=== PATIENT | female | born 1995 | race Caucasian/White ===

== ENCOUNTER 2019-06-25 07:13 | Day surgery (SDC) | payer OTHER ==
--- NOTE | 2019-06-24 12:05 | HP ---
CHIEF COMPLAINT: Initiation of ECT PCP: none Primary Psychiatrist: Dr. Tavon Queen ([facility]) HISTORY OF PRESENT ILLNESS: 24 year old F with longstanding MDD which has become unstable over the last year. One suicide attempt early 2018, requiring medication adjustment. Recent Events: last inpt psych hospitalization December 2018 at [facility]. Also had inpatient admission at [facility] for SI. Over the last two months, Monica has begun self injurious behavior, by cutting her arms. 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 She continues to have SI, but does not have a clear plan, negative HI. 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 LMP: Mirena IUD, irreg menses Allergies: No Known Drug Allergies Allergy (Verified 06/25/19) HOME MEDICATIONS: Home Medications Medication Instructions Recorded Aripiprazole [Abilify] 20 mg PO DAILY 06/20/19 Bupropion HCl [Wellbutrin Xl] 300 mg PO DAILY 06/20/19 Fluoxetine HCl [Prozac] 40 mg PO DAILY 06/20/19 [place] Carbonate [Eskalith -] 600 mg PO DAILY 06/20/19 Quetiapine Fumarate [Seroquel -] 25 mg PO HS 06/20/19 clonazePAM [Klonopin -] 0.5 mg PO BID 06/20/19 REVIEW OF SYSTEMS CONSTITUTIONAL: Absent: fever, chills, diaphoresis, generalized weakness, malaise, loss of appetite, weight change HEENT: Absent: rhinorrhea, nasal congestion, throat pain, throat swelling, difficulty swallowing, mouth swelling, ear pain, eye pain, visual changes CARDIOVASCULAR: Absent: chest pain, syncope, palpitations, irregular heart rate, lightheadedness , peripheral edema RESPIRATORY: Absent: cough, shortness of breath, dyspnea with exertion, orthopnea, wheezing, stridor, hemoptysis GASTROINTESTINAL: Absent: abdominal pain, abdominal distension, nausea, vomiting, diarrhea, constipation, melena, hematochezia GENITOURINARY: Absent: dysuria, frequency, urgency, hesitancy, hematuria, flank pain, genital pain MUSCULOSKELETAL: Absent: myalgia, arthralgia, joint swelling, back pain, neck pain SKIN: Absent: rash, itching, pallor HEMATOLOGIC/IMMUNOLOGIC: Absent: easy bleeding, easy bruising, lymphadenopathy, frequent infections ENDOCRINE: Absent: unexplained weight gain, unexplained weight loss, heat intolerance, cold intolerance NEUROLOGIC: Absent: headache, focal weakness or paresthesias, dizziness, unsteady gait, seizure, mental status changes, bladder or bowel incontinence PSYCH: + SI, + sadness DIAGNOSTICS: LABS: urine preg negative, CMP/CBC WNL EKG: NSR 76bpm, no acute pathology. Vitals: T 98.5, BP 111/71, HR 78, RR 18. O2 sat 100% PHYSICAL EXAMINATION GENERAL: Awake, alert, and fully oriented, in no acute distress. HEAD: Normal with no signs of trauma. EYES: Pupils equal, round and reactive to light, sclera anicteric, conjunctiva clear. LUNGS: Breath sounds equal, clear to auscultation bilaterally. No wheezes, and no crackles. No accessory muscle use. HEART: Regular rate and rhythm, normal S1 and S2 ABDOMEN: Soft, nontender, not distended SKIN: + multiple laceration in various stages of healing MUSCULOSKELETAL: Normal range of motion at all joints. No bony deformities or tenderness. No CVA tenderness. UPPER EXTREMITIES: 2+ pulses, warm, well-perfused. No cyanosis. No clubbing. No peripheral edema. LOWER EXTREMITIES: 2+ pulses, warm, well-perfused. No calf tenderness. No peripheral edema. NEUROLOGICAL: Cranial nerves II-XII intact. Normal speech. PSYCH: flat/sad affect, +SI (no clear plan) ASSESSMENT/PLAN: 24 year old F with longstanding MDD, SI x 1, now with SIB recommended by psychiatrist to begin ECT. Pt deemed medically stable to start ECT. Cardiac --no cardiac history --Revised Cardiac Risk Index for Pre-Operative Risk: 0 points, 0.4% risk of major cardiac event Pulmonary --no pulmonary history Neurological --no neurological or neurosurgical history; no history of trauma Anesthesia --no reported problems with anesthesia ECT is a low risk procedure. The relative benefits of the planned procedure outweigh the relative risks for this patient at this time. Problem List - Problem (1) MDD (major depressive disorder) Code(s): F32.9 - MAJOR DEPRESSIVE DISORDER, SINGLE EPISODE, UNSPECIFIED Visit type - Emergency Visit Emergency Visit: No - New Patient This patient is new to me today: Yes Date on this admission: 06/25/19 - Critical Care Critical Care patient: No
[2019-06-25 08:05] VITALS: BMI 21.2
[2019-06-25 08:19] LABS: ALBUMIN 4.3 g/dl (3.4-5.0); BILIRUBIN,TOTAL 0.5 mg/dl (0.2-1); CALCIUM 9.3 mg/dl (8.5-10); CREATININE 0.7 mg/dl (0.55-1.3); POTASSIUM 4.3 mmol/L (3.5-5.1); TOT PROT 6.8 g/dl (6.4-8.2)
[2019-06-25 08:34] LABS: BASO % 0.6 % (0-2.0); EOS % 1.4 % (0-4.5); HEMATOCRIT 39.1 % (32.4-45.2); LYMPH % 18.1 % (8-40); MCH 31.2 pg (25.7-33.7); MCHC 33.3 g/dl (32.0-36.0); MEAN CELL VOLUME 93.5 fl (80-96); MEAN PLT VOLUME 8.4 fl (7.5-11.1); MONO % 9.7 % (3.8-10.2); NEUT % 70.2 % (42.8-82.8); PLATELET COUNT 215 K/MM3 (134-434); RBC 4.18 M/mm3 (3.60-5.2); RDW 11.8 % (11.6-15.6)
[2019-06-25] MEDS ORDERED: KETAMINE HCL 500 MG/10 ML VIAL ONE (10:02)
--- NOTE | 2019-06-25 11:07 | EKG ---
Test Reason : Blood Pressure : / mmHG Vent. Rate : 076 BPM Atrial Rate : 076 BPM P-R Int : 152 ms QRS Dur : 108 ms QT Int : 390 ms P-R-T Axes : 064 031 033 degrees QTc Int : 438 ms NORMAL SINUS RHYTHM NORMAL ECG NO PREVIOUS ECGS AVAILABLE Confirmed by Oliverio Martinez MD ([id number]) on 06/25/2019 11:06:37 AM Referred By: Paul Mi Confirmed By:Oliverio Martinez MD
[2019-06-25] MEDS ORDERED: ACETAMINOPHEN 325 MG TABLET (FP) ONE (11:12)
[2019-06-25 11:17] VITALS: TEMP 97.8
[2019-06-25 11:48] VITALS: BP 115/79; PULSE 74
== END 2019-06-25 11:50 | disposition home or self-care (01) ==
LOC: FECT 07:13
PROVIDERS: ATTEND Psychiatry & Neurology Psychiatry
PROC: GZB4ZZZ Other Electroconvulsive Therapy (ICD-10-PCS; principal; 2019-06-25 08:30)
DX: F33.2 Major depressive disorder, recurrent severe without psychotic features (principal)
CPT/HCPCS: 36415; 80053; 83735; 84703; 85025; 90870; 93005; 94760

== ENCOUNTER 2019-06-28 05:41 | Day surgery (SDC) | payer OTHER ==
[2019-06-28 07:01] VITALS: BMI 21.2
[2019-06-28] MEDS ORDERED: KETAMINE HCL 500 MG/10 ML VIAL ONE (07:26)
[2019-06-28] MEDS ORDERED: ONDANSETRON 4 MG/2 ML VIAL IVPUSH ONE (08:20)
[2019-06-28 08:52] VITALS: TEMP 98
[2019-06-28 09:10] VITALS: BP 122/67; PULSE 79
== END 2019-06-28 09:15 | disposition home or self-care (01) ==
LOC: FECT 05:41
PROVIDERS: ATTEND Psychiatry & Neurology Psychiatry
PROC: GZB4ZZZ Other Electroconvulsive Therapy (ICD-10-PCS; principal; 2019-06-28 07:15)
DX: F32.9 Major depressive disorder, single episode, unspecified (principal)
CPT/HCPCS: 90870; 94760

== ENCOUNTER 2019-07-04 05:44 | Day surgery (SDC) | payer OTHER ==
[2019-06-26 13:48] VITALS: BMI 21.2
[2019-07-04] MEDS ORDERED: KETAMINE HCL 500 MG/10 ML VIAL ONE (08:29)
[2019-07-04 09:37] VITALS: TEMP 98
[2019-07-04 09:47] VITALS: BP 129/79; PULSE 81
[2019-07-04] MEDS ORDERED: ACETAMINOPHEN 325 MG TABLET (FP) PO PRN (10:14)
[2019-07-04] MEDS ORDERED: ONDANSETRON 4 MG/2 ML VIAL IVPUSH PRN (10:14)
== END 2019-07-04 09:45 | disposition home or self-care (01) ==
LOC: FECT 05:44
PROVIDERS: ATTEND Psychiatry & Neurology Psychiatry
PROC: GZB4ZZZ Other Electroconvulsive Therapy (ICD-10-PCS; principal; 2019-07-04 08:00)
DX: F33.2 Major depressive disorder, recurrent severe without psychotic features (principal)
CPT/HCPCS: 84703; 90870; 94760

== ENCOUNTER 2019-07-09 06:04 | Day surgery (SDC) | payer OTHER ==
[2019-07-02 08:09] VITALS: BMI 20.5
[2019-07-09 06:33] VITALS: TEMP 98.8
[2019-07-09] MEDS ORDERED: KETAMINE HCL 500 MG/10 ML VIAL ONE (06:57)
[2019-07-09 09:51] VITALS: BP 119/69; PULSE 71
== END 2019-07-09 09:25 | disposition home or self-care (01) ==
LOC: FECT 06:04
PROVIDERS: ATTEND Psychiatry & Neurology Psychiatry
PROC: GZB4ZZZ Other Electroconvulsive Therapy (ICD-10-PCS; principal; 2019-07-09 07:15)
DX: F32.9 Major depressive disorder, single episode, unspecified (principal)
CPT/HCPCS: 81025; 90870; 94760

== ENCOUNTER 2019-07-12 05:24 | Day surgery (SDC) | payer OTHER ==
[2019-07-04 18:04] VITALS: BMI 21.2
[2019-07-12 09:53] VITALS: PULSE 82; TEMP 97.6
[2019-07-12 09:57] VITALS: BP 120/70
== END 2019-07-12 09:30 | disposition home or self-care (01) ==
LOC: FECT 05:24
PROVIDERS: ATTEND Psychiatry & Neurology Psychiatry
PROC: GZB4ZZZ Other Electroconvulsive Therapy (ICD-10-PCS; principal; 2019-07-12 07:00)
DX: F32.9 Major depressive disorder, single episode, unspecified (principal)
CPT/HCPCS: 90870; 94760

== ENCOUNTER 2019-07-16 05:48 | Day surgery (SDC) | payer OTHER ==
[2019-07-04 18:10] VITALS: BMI 21.1
[2019-07-16 06:55] VITALS: TEMP 98.4
[2019-07-16] MEDS ORDERED: KETAMINE HCL 500 MG/10 ML VIAL ONE (07:37)
[2019-07-16 09:08] VITALS: BP 114/74; PULSE 82
[2019-07-16] MEDS ORDERED: ACETAMINOPHEN 325 MG TABLET (FP) PO PRN (09:08)
== END 2019-07-16 09:10 | disposition home or self-care (01) ==
LOC: FECT 05:48
PROVIDERS: ATTEND Psychiatry & Neurology Psychiatry
PROC: GZB4ZZZ Other Electroconvulsive Therapy (ICD-10-PCS; principal; 2019-07-16 08:00)
DX: F32.9 Major depressive disorder, single episode, unspecified (principal)
CPT/HCPCS: 81025; 90870; 94760

== ENCOUNTER 2019-07-19 05:40 | Day surgery (SDC) | payer OTHER ==
[2019-07-12 11:44] VITALS: BMI 21.2
[2019-07-19] MEDS ORDERED: KETAMINE HCL 500 MG/10 ML VIAL ONE (08:41)
[2019-07-19 10:40] VITALS: TEMP 98.3
[2019-07-19 10:42] VITALS: BP 117/70; PULSE 84
== END 2019-07-19 10:35 | disposition home or self-care (01) ==
LOC: FECT 05:40
PROVIDERS: ATTEND Psychiatry & Neurology Psychiatry
PROC: GZB4ZZZ Other Electroconvulsive Therapy (ICD-10-PCS; principal; 2019-07-19 07:30)
DX: F33.2 Major depressive disorder, recurrent severe without psychotic features (principal)
CPT/HCPCS: 90870; 94760

== ENCOUNTER 2019-07-23 05:43 | Day surgery (SDC) | payer OTHER ==
[2019-07-19 18:07] VITALS: BMI 21.2
[2019-07-23 07:10] VITALS: TEMP 98
[2019-07-23] MEDS ORDERED: KETAMINE HCL 500 MG/10 ML VIAL ONE (07:37)
[2019-07-23 09:29] VITALS: BP 124/65; PULSE 81
== END 2019-07-23 09:40 | disposition home or self-care (01) ==
LOC: FECT 05:43
PROVIDERS: ATTEND Psychiatry & Neurology Psychiatry
PROC: GZB4ZZZ Other Electroconvulsive Therapy (ICD-10-PCS; principal; 2019-07-23 07:45)
DX: F33.2 Major depressive disorder, recurrent severe without psychotic features (principal)
CPT/HCPCS: 81025; 90870; 94760

== ENCOUNTER → 2019-08-01 | Day surgery (SDC) | payer OTHER ==
[~2019-08-01] MED LIST: KETAMINE HCL 500 MG/10 ML VIAL ONE; LACTATED RINGERS SOLUTION 1,000 ML IV SCH; ONDANSETRON 4 MG/2 ML VIAL IVPUSH PRN; ONDANSETRON 4 MG/2 ML VIAL ONE
[2019-08-01 07:00] VITALS: BMI 21.2
--- NOTE | 2019-08-01 07:45 | HP ---
CHIEF COMPLAINT: Major depressive disorder PCP: none Primary Psychiatrist: Dr. Tavon Queen ([facility]) HISTORY OF PRESENT ILLNESS: 24 year-old female with major depressive disorder. Last inpatient psych hospitalization December 2018 at [facility]. Started ECT treatment here at [facility] . Presents today for ECT. 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 Smoking:denies Alcohol: denies Drugs: denies Allergies No Known Drug Allergies Allergy (Verified 07/12/19 07:12) HOME MEDICATIONS: Home Medications Medication Instructions Recorded Aripiprazole [Abilify] 20 mg PO DAILY 06/20/19 Bupropion HCl [Wellbutrin Xl] 300 mg PO DAILY 06/20/19 Fluoxetine HCl [Prozac] 40 mg PO DAILY 06/20/19 [place] Carbonate [Eskalith -] 600 mg PO HS 06/20/19 Quetiapine Fumarate [Seroquel -] 25 mg PO HS 06/20/19 clonazePAM [Klonopin -] 0.5 mg PO BID 06/20/19 REVIEW OF SYSTEMS CONSTITUTIONAL: Absent: fever, chills, diaphoresis, generalized weakness, malaise, loss of appetite, weight change HEENT: Absent: rhinorrhea, nasal congestion, throat pain, throat swelling, difficulty swallowing, mouth swelling, ear pain, eye pain, visual changes CARDIOVASCULAR: Absent: chest pain, syncope, palpitations, irregular heart rate, lightheadedness , peripheral edema RESPIRATORY: Absent: cough, shortness of breath, dyspnea with exertion, orthopnea, wheezing, stridor, hemoptysis GASTROINTESTINAL: Absent: abdominal pain, abdominal distension, nausea, vomiting, diarrhea, constipation, melena, hematochezia GENITOURINARY: Absent: dysuria, frequency, urgency, hesitancy, hematuria, flank pain, genital pain MUSCULOSKELETAL: Absent: myalgia, arthralgia, joint swelling, back pain, neck pain SKIN: Absent: rash, itching, pallor HEMATOLOGIC/IMMUNOLOGIC: Absent: easy bleeding, easy bruising, lymphadenopathy, frequent infections ENDOCRINE: Absent: unexplained weight gain, unexplained weight loss, heat intolerance, cold intolerance NEUROLOGIC: Absent: headache, focal weakness or paresthesias, dizziness, unsteady gait, seizure, mental status changes, bladder or bowel incontinence PHYSICAL EXAMINATION Vital Signs - 24 hr 08/01/19 06:56 Temperature 97.7 F Pulse Rate 77 Respiratory 18 Rate Blood Pressure 116/66 O2 Sat by Pulse 100 Oximetry (%) GENERAL: Awake, alert, and fully oriented, in no acute distress. HEAD: Normal with no signs of trauma. EYES: Pupils equal, round and reactive to light, sclera anicteric, conjunctiva clear. LUNGS: Breath sounds equal, clear to auscultation bilaterally. No wheezes, and no crackles. No accessory muscle use. HEART: Regular rate and rhythm, normal S1 and S2 ABDOMEN: Soft, nontender, not distended MUSCULOSKELETAL: Normal range of motion at all joints. No bony deformities or tenderness. No CVA tenderness. UPPER EXTREMITIES: 2+ pulses, warm, well-perfused. No cyanosis. No clubbing. No peripheral edema. LOWER EXTREMITIES: 2+ pulses, warm, well-perfused. No calf tenderness. No peripheral edema. NEUROLOGICAL: Cranial nerves II-XII intact. Normal speech. ASSESSMENT/PLAN: 24 year-old female with major depressive disorder. Last inpatient psych hospitalization December 2018 at [facility]. Started ECT treatment here at [facility] . Presents today for ECT. Cardiac --no cardiac history --Revised Cardiac Risk Index for Pre-Operative Risk: 0 points, 0.4% risk of major cardiac event Pulmonary --no pulmonary history Neurological --no neurological or neurosurgical history; no history of trauma Anesthesia --no reported problems with anesthesia ECT is a low risk procedure. The relative benefits of the planned procedure outweigh the relative risks for this patient at this time. Visit type - Emergency Visit Emergency Visit: No - New Patient This patient is new to me today: Yes Date on this admission: 08/01/19 - Critical Care Critical Care patient: No
[2019-08-01 10:00] VITALS: TEMP 97.9
[2019-08-01 11:01] VITALS: BP 122/76; PULSE 80
== END | disposition home or self-care (01) ==
LOC: FECT 05:46
PROVIDERS: ATTEND Psychiatry & Neurology Psychiatry
PROC: GZB4ZZZ Other Electroconvulsive Therapy (ICD-10-PCS; principal; 2019-08-01 07:45)
DX: F32.9 Major depressive disorder, single episode, unspecified (principal)
CPT/HCPCS: 81025; 90870; 94760

== ENCOUNTER 2019-08-02 05:45 | Day surgery (SDC) | payer OTHER ==
[2019-08-02 06:55] VITALS: BMI 21.2
[2019-08-02] MEDS ORDERED: KETAMINE HCL 500 MG/10 ML VIAL ONE (07:08)
[2019-08-02 09:01] VITALS: TEMP 98.2
[2019-08-02 11:02] VITALS: BP 115/71; PULSE 81
== END 2019-08-02 10:00 | disposition home or self-care (01) ==
LOC: FECT 05:45
PROVIDERS: ATTEND Psychiatry & Neurology Psychiatry
PROC: GZB4ZZZ Other Electroconvulsive Therapy (ICD-10-PCS; principal; 2019-08-02 07:15)
DX: F32.9 Major depressive disorder, single episode, unspecified (principal)
CPT/HCPCS: 90870; 94760

== ENCOUNTER 2019-08-06 05:43 | Day surgery (SDC) | payer OTHER ==
[2019-08-06 07:22] VITALS: BMI 21.2
[2019-08-06] MEDS ORDERED: KETAMINE HCL 500 MG/10 ML VIAL ONE (07:50)
[2019-08-06 09:00] VITALS: TEMP 98.7
[2019-08-06 09:25] VITALS: BP 108/69; PULSE 86
== END 2019-08-06 10:20 | disposition home or self-care (01) ==
LOC: FECT 05:43
PROVIDERS: ATTEND Psychiatry & Neurology Psychiatry
PROC: GZB4ZZZ Other Electroconvulsive Therapy (ICD-10-PCS; principal; 2019-08-06 07:30)
DX: F32.9 Major depressive disorder, single episode, unspecified (principal)
CPT/HCPCS: 81025; 90870; 94760

== ENCOUNTER 2019-08-08 06:14 | Day surgery (SDC) | payer OTHER ==
[2019-08-08 06:37] VITALS: BMI 21.2
[2019-08-08] MEDS ORDERED: KETAMINE HCL 500 MG/10 ML VIAL ONE (06:56)
[2019-08-08] MEDS ORDERED: ONDANSETRON 4 MG/2 ML VIAL IVPUSH PRN (07:24)
[2019-08-08 08:24] VITALS: BP 112/73; PULSE 87; TEMP 98
== END 2019-08-08 09:20 | disposition home or self-care (01) ==
LOC: FECT 06:14
PROVIDERS: ATTEND Psychiatry & Neurology Psychiatry
PROC: GZB4ZZZ Other Electroconvulsive Therapy (ICD-10-PCS; principal; 2019-08-08 07:30)
DX: F32.9 Major depressive disorder, single episode, unspecified (principal)
CPT/HCPCS: 90870; 94760

== ENCOUNTER 2019-08-12 05:48 | Day surgery (SDC) | payer OTHER ==
[2019-08-12] MEDS ORDERED: LACTATED RINGERS SOLUTION 1,000 ML IV SCH (07:00)
[2019-08-12 07:19] VITALS: BMI 21.2
[2019-08-12] MEDS ORDERED: KETAMINE HCL 500 MG/10 ML VIAL ONE (07:57)
[2019-08-12 09:26] VITALS: TEMP 98
[2019-08-12] MEDS ORDERED: ONDANSETRON 4 MG/2 ML VIAL IVPUSH ONE ×2 (09:45→10:12)
[2019-08-12 09:48] VITALS: BP 123/80; PULSE 77
== END 2019-08-12 10:33 | disposition home or self-care (01) ==
LOC: FECT 05:48
PROVIDERS: ATTEND Psychiatry & Neurology Psychiatry
PROC: GZB4ZZZ Other Electroconvulsive Therapy (ICD-10-PCS; principal; 2019-08-12 07:15)
DX: F32.9 Major depressive disorder, single episode, unspecified (principal)
CPT/HCPCS: 84703; 90870; 94760

== ENCOUNTER 2019-08-15 06:15 | Day surgery (SDC) | payer OTHER ==
[2019-08-15 06:51] VITALS: BMI 21.2
[2019-08-15] MEDS ORDERED: LACTATED RINGERS SOLUTION 1,000 ML IV SCH (07:00)
[2019-08-15] MEDS ORDERED: KETAMINE HCL 500 MG/10 ML VIAL ONE (07:04)
[2019-08-15 08:16] VITALS: TEMP 98.2
[2019-08-15 10:13] VITALS: BP 118/74; PULSE 81
== END 2019-08-15 09:30 | disposition home or self-care (01) ==
LOC: FECT 06:15
PROVIDERS: ATTEND Psychiatry & Neurology Psychiatry
PROC: GZB4ZZZ Other Electroconvulsive Therapy (ICD-10-PCS; principal; 2019-08-15 07:15)
DX: F32.9 Major depressive disorder, single episode, unspecified (principal)
CPT/HCPCS: 81025; 90870; 94760